=== PATIENT | female | born 1960 | race Caucasian/White ===

== ENCOUNTER 2019-04-06 00:49 | Day surgery (SDC) | payer OTHER ==
[~2019-04-06] VITALS: Ht 167.6 cm; Wt 70.3 kg
[~2019-04-06 00:49] MED LIST: CEPH500C24 PO; CITA-137 PO; ESCI20TA8 PO; ONDA4TAB PO; POLY10DR22 OP; TRAM-420 PO; TYPH1CAP7 PO
[2019-04-06 10:44] VITALS: BP 114/70
[2019-04-06] MEDS ORDERED: PROPOFOL EMUL(*) 10MG/ML 20 ML 20 ML ONE ×2 (10:49→14:08)
[2019-04-06] MEDS ORDERED: LIDOCAINE MPF 1% 5 ML VIAL ONE ×2 (10:49→14:08)
[2019-04-06] MEDS ORDERED: NORMOSOL R SOLN(*) 1000 ML BAG 1,000 ML IV PRN (12:25)
[2019-04-06] MEDS ORDERED: LIDOCAINE/SOD BICARB 8.4% SYR ID ONE (12:25)
[2019-04-06 12:45] VITALS: BP 117/78
[2019-04-06 13:00] VITALS: BP 108/71
[2019-04-06 13:15] VITALS: BP 106/76
[2019-04-06 13:22] VITALS: BP_SYST 103; BP_SYST 96; BP_DIAS 66; BP_DIAS 71
== END 2019-04-06 13:44 | disposition home or self-care (01) ==
LOC: OR 00:49
PROVIDERS: ATTEND Family Medicine
DX: Z12.11 Encounter for screening for malignant neoplasm of colon (principal)
CPT/HCPCS: 00812; 45378; J2001; J2704

== ENCOUNTER → 2019-04-07 | Outpatient (CLI) | payer OTHER ==
--- NOTE | 2019-04-10 10:06 | RADIOLOGY IMAGING REPORT ---
FACILITY: [facility] - [place] PATIENT NAME: RUSSELL MATA : [id number] MR: [id number] V: [id number] EXAM DATE: [id number] ORDERING PHYSICIAN: TERI MUSTAFA TECHNOLOGIST: Nicole Cote PROCEDURE: BILATERAL DIGITAL SCREENING MAMMOGRAM WITH CAD ASSISTED INTERPRETATION & 3D TOMOSYNTHESIS REASON FOR STUDY: Screening. FAMILY HISTORY OF BREAST CANCER: None. BREAST PROCEDURES/TREATMENTS: None. COMPARISON: 06/18/08. VIEWS OBTAINED: Bilateral 2D & 3D full field CC & MLO projections. BREAST DENSITY: The breasts are heterogeneously dense which can obscure small masses. MAMMOGRAM FINDINGS: The parenchymal pattern has remained stable allowing for difference in mammographic technique & patient positioning. IMPRESSION: BIRADS 1: Negative. DIAGNOSTIC CATEGORY 1--NEGATIVE. RECOMMENDATIONS: ROUTINE MAMMOGRAM AND CLINICAL EVALUATION. Dictated by: Radha Newton M.D. on 04/07/2019 at 15:08 Transcribed by: MELINA on 04/07/2019 at 15:20 Approved by: Radha Newton M.D. on 04/10/2019 at 10:00 [facility]
== END ==
LOC: MAMO 04:02
PROVIDERS: ATTEND Family Medicine
DX: Z12.31 Encounter for screening mammogram for malignant neoplasm of breast (principal)
CPT/HCPCS: 77063; 77067